=== PATIENT | female | born 1955 | race Caucasian/White ===

== ENCOUNTER 2021-06-18 06:33 | Day surgery (SDC) | payer MEDICARE, BC ==
[~2021-06-18 06:33] MED LIST: Acetaminophen 325 MG Tab PO SCH; Cyclobenzaprine 10 MG Tab PO PRN; Lactated Ringers 1,000 ML IV SCH; Lidocaine 1%/Sod Bicarbonate in NS 8.4% 1 ML Syringe IDERM PRN; Pregabalin 25 MG Cap PO SCH; Sodium Chloride 0.9% 10 ML Syringe FLUSH SCH; oxyCODONE 5 MG Tab PO PRN; oxyCODONE ER 10 MG TAB.ER PO SCH
[2021-06-18] MEDS ORDERED: Ropivacaine 0.5% 5 MG/ML 30 ML SDV ONE (06:52)
[2021-06-18] MEDS ORDERED: EPINEPHrine 1 MG/ML SDV ONE (06:52)
[2021-06-18] MEDS ORDERED: Lidocaine 1% 4 ML ONE (06:53)
[2021-06-18] MEDS ORDERED: ceFAZolin 1 GM Vial ONE (06:54)
[2021-06-18] MEDS ORDERED: fentaNYL 100 MCG/2 ML SDV ONE (06:54)
[2021-06-18] MEDS ORDERED: Propofol 200 MG/20 ML SDV ONE (06:54)
[2021-06-18] MEDS ORDERED: Midazolam 1 MG/ML 2 ML SDV ONE (06:54)
[2021-06-18] MEDS ORDERED: ePHEDrine 50 MG/ML SDV ONE (07:22)
[2021-06-18] MEDS ORDERED: Ondansetron 4 MG/2 ML SDV ONE (07:31)
[2021-06-18] MEDS ORDERED: HYDROmorphone 0.5 MG/0.5 ML Syringe IVPUSH PRN (07:36)
[2021-06-18] MEDS ORDERED: fentaNYL 100 MCG/2 ML SDV IVPUSH PRN (07:36)
[2021-06-18] MEDS ORDERED: Ondansetron 4 MG/2 ML SDV IVPUSH PRN (07:36)
[2021-06-18] MEDS: Morphine 8 MG, EPINEPHrine 0.3 MG, Cefuroxime 750 MG, Ketorolac 30 MG, Sodium Chloride ... PRN ×10 (07:58→08:10)
[2021-06-18] MEDS: Vancomycin 1 GM SDV ONE ×2 (07:59→08:16)
[2021-06-18] MEDS: Bupivacaine 0.25% 10 ML SDV ONE ×2 (07:59→08:27)
[2021-06-18] MEDS: Triamcinolone Acetonide 40 MG/ML 1 ML SDV ONE ×2 (08:00→08:27)
[2021-06-18] MEDS ORDERED: Ketorolac 15 MG/ML SDV ONE (08:40)
[2021-06-18] MEDS ORDERED: Lactated Ringers 1,000 ML ONE ×2 (13:07)
== END 2021-06-18 12:36 | disposition home or self-care (01) ==
LOC: JD.SDS 06:33
PROVIDERS: ATTEND Orthopaedic Surgery
DX: M17.0 Bilateral primary osteoarthritis of knee (principal); I10 Essential (primary) hypertension; E66.9 Obesity, unspecified; Z79.899 Other long term (current) drug therapy; Z88.2 Allergy status to sulfonamides; Z90.49 Acquired absence of other specified parts of digestive tract; Z98.890 Other specified postprocedural states; Z68.38 Body mass index [BMI] 38.0-38.9, adult
CPT/HCPCS: 20610; 27447; 73560; 97110; 97116; 97161; A9270; C1713; C1776; J0171; J0690; J0697; J1885; J2250; J2270; J2370; J2405; J2704; J2795; J3010; J3301; J3370; J3490; J7120; 01402; 64450; 76942

== ENCOUNTER 2023-06-18 07:00 | Day surgery (SDC) | payer BC ==
[~2023-06-18 07:00] MED LIST changes: -Cyclobenzaprine 10 MG Tab PO PRN; -Lidocaine 1%/Sod Bicarbonate in NS 8.4% 1 ML Syringe IDERM PRN; +Morphine 8 MG, EPINEPHrine 0.3 MG, Cefuroxime 750 MG, Ketorolac 30 MG, Sodium Chloride ... PRN; +Sodium Chloride 0.9% 10 ML Syringe FLUSH PRN; -Sodium Chloride 0.9% 10 ML Syringe FLUSH SCH; -oxyCODONE 5 MG Tab PO PRN
[2023-06-18] MEDS ORDERED: Vancomycin 1 GM SDV ONE (07:16)
[2023-06-18] MEDS ORDERED: Tranexamic Acid 1,000 MG/10 ML Vial ONE (07:17)
[2023-06-18] MEDS ORDERED: Ropivacaine 0.5% 5 MG/ML 30 ML SDV ONE (07:55)
[2023-06-18] MEDS ORDERED: Lidocaine 2% 5 ML SDV ONE (07:56)
[2023-06-18] MEDS ORDERED: Propofol 200 MG/20 ML SDV ONE ×2 (07:56→10:09)
[2023-06-18] MEDS ORDERED: ceFAZolin 2 GM Vial ONE ×2 (07:56→09:23)
[2023-06-18] MEDS ORDERED: fentaNYL 100 MCG/2 ML SDV ONE (07:56)
[2023-06-18] MEDS ORDERED: Ondansetron 4 MG/2 ML SDV IVPUSH PRN (08:31)
[2023-06-18] MEDS ORDERED: HYDROmorphone 0.5 MG/0.5 ML Syringe IVPUSH PRN (08:31)
[2023-06-18] MEDS ORDERED: fentaNYL 100 MCG/2 ML SDV IVPUSH PRN (08:31)
[2023-06-18] MEDS ORDERED: Sodium Chloride 0.9% 10 ML Syringe FLUSH SCH (09:00)
[2023-06-18] MEDS ORDERED: Lactated Ringers 1,000 ML ONE (09:30)
[2023-06-18] MEDS ORDERED: ePHEDrine 50 MG/ML SDV ONE (09:54)
[2023-06-18] MEDS ORDERED: oxyCODONE 5 MG Tab PO PRN (10:51)
[2023-06-18] MEDS ORDERED: Cyclobenzaprine 10 MG Tab PO SCH (10:51)
== END 2023-06-18 14:20 | disposition home or self-care (01) ==
LOC: JD.SDS 07:00
PROVIDERS: ATTEND Orthopaedic Surgery
DX: M17.12 Unilateral primary osteoarthritis, left knee (principal); I10 Essential (primary) hypertension; M1A.9XX0 Chronic gout, unspecified, without tophus (tophi); E78.5 Hyperlipidemia, unspecified; E66.9 Obesity, unspecified; Z79.899 Other long term (current) drug therapy; Z88.2 Allergy status to sulfonamides
CPT/HCPCS: 0055T; 27447; 64447; 73560; 97116; 97161; A9270; C1713; C1776; J0171; J0690; J0697; J1885; J2270; J2704; J2795; J3010; J3370; J7030; J7120; J3490